=== PATIENT | male | born 1985 | race Caucasian/White ===

== ENCOUNTER 2022-01-30 18:35 | Emergency (ER) | payer BC ==
[2022-01-30] MEDS ORDERED: Dexamethasone 10 MG/ML SDV PO ONE (19:40)
[2022-01-30 20:25] LABS: CARBON DIOXIDE,CO2 28.1 mmol/L (21.0-32.0); POTASSIUM,K 3.8 mmol/L (3.5-5.1)
== END 2022-01-30 20:58 | disposition home or self-care (01) ==
LOC: MW.ED 18:35
DX: K12.2 Cellulitis and abscess of mouth (principal); K21.9 Gastro-esophageal reflux disease without esophagitis; E03.9 Hypothyroidism, unspecified; Z79.899 Other long term (current) drug therapy
CPT/HCPCS: 36415; 70360; 80053; 85025; 87651; 99283; J8540